=== PATIENT | female | born 1955 | race Caucasian/White ===

== ENCOUNTER 2018-03-13 16:03 | Observation (INO) ==
[2018-03-13] MEDS ORDERED: Morphine Inj 4 MG/ML Vial IM ONE (16:42)
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
[2018-03-13] MEDS ORDERED: Acetaminophen 325 MG Tablet PO PRN (20:13)
[2018-03-13] MEDS: Morphine Inj 4 MG/ML Vial IV.PUSH PRN (22:30)
[2018-03-14] MEDS: Morphine Inj 4 MG/ML Vial IV.PUSH PRN (02:50)
[2018-03-14] MEDS: Docusate Sodium 100 MG Capsule PO SCH (10:40)
[2018-03-14] MEDS: Morphine Sulfate 15 MG IR Tablet PO PRN ×3 (11:04→23:06)
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
[2018-03-15] MEDS: Morphine Sulfate 15 MG IR Tablet PO PRN ×2 (06:52→13:21)
--- NOTE | 2018-03-15 09:38 | P.PN ---
Subjective Interval history: Pain is under adequate control with the morphine sulfate IR. Blood pressure is higher by patient anxious to be discharged. Arrangements have been made for assisted living facility placement. Urine output good. Bowels moving. No abdominal pain. Active Medications Generic Name Dose Route Start Last Admin Trade Name Freq PRN Reason Stop Dose Admin Acetaminophen 650 mg 03/13/18 20:13 Tylenol PO Q4H PRN Temp > 100.4 Docusate Sodium 200 mg 03/14/18 09:45 03/14/18 10:40 Colace PO 200 mg DAILY JOSE Administration Morphine Sulfate 4 mg 03/13/18 20:16 03/14/18 02:50 Morphine Inj IV.PUSH 4 mg Q4H PRN Administration PAIN SCALE 6 TO 10 Morphine Sulfate 15 mg 03/14/18 10:43 03/15/18 06:52 Msir PO 15 mg Q4H PRN Administration PAIN SCALE 6 TO 10 Ondansetron HCl 4 mg 03/13/18 20:13 Zofran Inj IV.PUSH Q6H PRN NAUSEA OR VOMITING Sodium Chloride 2 ml 03/13/18 21:00 03/14/18 23:05 Ns Flush IV.FLUSH Not Given BID JOSE Sodium Chloride 2 ml 03/13/18 20:13 Ns Flush IV.FLUSH PRN PRN FLUSH AFTER USING IV ACCESS Physical Exam Vital signs: Vital Signs 03/14/18 11:19 03/14/18 20:00 03/15/18 07:53 Temperature 98.5 F 97.9 F 98.4 F Pulse Rate 66 75 67 Respiratory Rate 16 16 16 Blood Pressure 145/65 H 160/73 H 160/74 H Pulse Oximetry 99 98 100 - Constitutional mild distress Comments: Due to pain in left upper extremity - Routine Neck Exam Present: supple, full ROM Comments: Trachea midline. No lymphadenopathy - Routine Respiratory Exam Present: CTA bilaterally - Routine Cardiovascular Exam Present: RRR Comments: 2/6 systolic murmur right upper sternal border - Routine Extremities Exam Comments: Left upper extremity reveals splint in place involving elbow, forearm and wrist. Capillary refill and motor intact in the fingers. Results - Labs Laboratory Results - last 24 hr 03/14/18 03/14/18 12:51 22:57 POC Glucose 137 H 167 H Assessment and Plan - Assessment (1) Ulnar fracture Code(s): S52.209A - Unspecified fracture of shaft of unspecified ulna, initial encounter for closed fracture Status: Acute Plan: Pain is under adequate control with the morphine sulfate IR. Patient states she was seen by orthopedic surgery yesterday. No note in the chart as of yet. Continue with conservative measures of splinting/immobilization. Continue with pain control. (2) Left radial fracture Code(s): S52.92XA - Unspecified fracture of left forearm, initial encounter for closed fracture Status: Acute Plan: Possible left radius fracture per radiology report. Follow-up with orthopedic surgery. Patient has left upper extremity immobilized. (3) Primary thrombocytosis Code(s): D47.3 - Essential (hemorrhagic) thrombocythemia Status: Chronic Plan: Continue Anagrelide and follow-up with hematology (4) Autoimmune urticaria Code(s): L50.8 - Other urticaria Status: Chronic Plan: Patient continues with dronabinol, Atarax and Zyrtec which seem to be controlling her symptoms. (5) Type 1 diabetes mellitus Code(s): E10.9 - Type 1 diabetes mellitus without complications Status: Chronic Plan: Patient is managing her own diabetes with continuous glucose monitor and insulin pump. (6) Hypothyroidism Code(s): E03.9 - Hypothyroidism, unspecified Status: Acute Plan: Continue with levothyroxine. (7) Hyperlipidemia Code(s): E78.5 - Hyperlipidemia, unspecified Status: Chronic Plan: Patient continues to receive Zetia. 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 Vision is stable. She follows up with retinal specialist in ophthalmology - Plan Discharge Planning: Plan to discharge patient to [facility] today (1) Ulnar fracture Qualifiers: Encounter type: initial encounter Ulna location: distal Fracture type: closed Fracture morphology: other fracture Laterality: left Qualified Code(s) : S52.692A - Other fracture of lower end of left ulna, initial encounter for closed fracture (2) Left radial fracture Qualifiers: Encounter type: initial encounter Radius location: neck Fracture type: closed Fracture alignment: nondisplaced Qualified Code(s): S52.135A - Nondisplaced fracture of neck of left radius, initial encounter for closed fracture (5) Type 1 diabetes mellitus Qualifiers: Diabetes mellitus complication status: without complication Qualified Code(s) : E10.9 - Type 1 diabetes mellitus without complications (6) Hypothyroidism Qualifiers: Hypothyroidism type: due to Rosana's thyroiditis Qualified Code(s): E03.8 - Other specified hypothyroidism; E06.3 - Autoimmune thyroiditis (7) Hyperlipidemia Qualifiers: Hyperlipidemia type: mixed hyperlipidemia Qualified Code(s): E78.2 - Mixed hyperlipidemia
[2018-03-15] MEDS: Docusate Sodium 100 MG Capsule PO SCH (10:14)
--- NOTE | 2018-03-15 11:10 | P.DCO ---
- Diagnosis (1) Ulnar fracture Status: Acute (2) Left radial fracture Status: Acute (3) Primary thrombocytosis Status: Chronic (4) Autoimmune urticaria Status: Chronic (5) Type 1 diabetes mellitus Status: Chronic (6) Hypothyroidism Status: Acute (7) Hyperlipidemia Status: Chronic (8) Legal blindness Status: Acute - Physical Therapy Order: Evaluate and treat - Occupational Therapy Order: Evaluate and treat - Case Management Consult Case Management Consult-Home Health: Yes - Certification I have seen patient Yanci Cano on 03/15/18. My clinical findings support the need for the requested home health care services because: Limited mobility due to disease progression, Limited ability to care for self I certify that my clinical findings support that this patient is homebound because: Unsteady gait/balance, Unsafe to leave home unassisted (1) Ulnar fracture Qualifiers: Encounter type: initial encounter Ulna location: distal Fracture type: closed Fracture morphology: other fracture Laterality: left Qualified Code(s) : S52.692A - Other fracture of lower end of left ulna, initial encounter for closed fracture (2) Left radial fracture Qualifiers: Encounter type: initial encounter Radius location: neck Fracture type: closed Fracture alignment: nondisplaced Qualified Code(s): S52.135A - Nondisplaced fracture of neck of left radius, initial encounter for closed fracture (5) Type 1 diabetes mellitus Qualifiers: Diabetes mellitus complication status: without complication Qualified Code(s) : E10.9 - Type 1 diabetes mellitus without complications (6) Hypothyroidism Qualifiers: Hypothyroidism type: due to Rosana's thyroiditis Qualified Code(s): E03.8 - Other specified hypothyroidism; E06.3 - Autoimmune thyroiditis (7) Hyperlipidemia Qualifiers: Hyperlipidemia type: mixed hyperlipidemia Qualified Code(s): E78.2 - Mixed hyperlipidemia
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
[2018-03-15 17:43] VITALS: BP 180/76; PULSE 69; RESP 18; TEMP 98.5; O2SAT 99
== END 2018-03-15 19:52 ==
LOC: NEDA 16:03 → NEPC 16:03 → NEDA 22:05 → NEPGCP 22:16
PROVIDERS: ADMIT Family Medicine; ATTEND Family Medicine